=== PATIENT | female | born 1960 | race Hispanic/Latino ===

== ENCOUNTER 2018-02-18 06:28 | Day surgery (SDC) | payer BC ==
[~2018-02-18] VITALS: Ht 157.5 cm; Wt 65.8 kg
[~2018-02-18 06:28] MED LIST: AMOXICILLIN500 MG PO; BACTRIM DS1 TAB PO; CIPRO500 MG OR; CIPRODEX1 ML OT; DARVOCET-N100 MG OR; FISH OIL1000 M2 PO; FLEXERIL OR; GLIPIZIDE10 MG PO; LISINOPRIL10 MG PO; LORTAB 10-325 M1 TAB PO; MECLIZINE25 MG PO; METFORMIN1000 MG PO; PERCOCET1 TA2 PO; SIMVASTATIN40 MG OR; SIMVASTATIN40 MG PO; ULTRAM50 M1 PO
[2018-02-18] MEDS ORDERED: GABAPENTIN100 MG PO (06:46)
[2018-02-18] MEDS ORDERED: NORCO1 TA1 PO (10:59)
[2018-02-18] MEDS ORDERED: MOTRIN800 MG PO (10:59)
[2018-02-18 11:35] VITALS: BP 145/74
== END 2018-02-18 11:30 | disposition home or self-care (01) | DRG 419 ==
LOC: ENDO 06:28 → ORM 06:28 → ENDO 09:45 → ORM 11:15 → ENDO 11:15 → ORM 11:30
PROVIDERS: ATTEND Surgery
PROC: 0FT44ZZ Resection of Gallbladder, Percutaneous Endoscopic Approach (ICD-10-PCS; principal; 2018-02-18)
DX: K80.10 Calculus of gallbladder with chronic cholecystitis without obstruction (principal)
CPT/HCPCS: J2710

== ENCOUNTER 2018-08-14 10:25 | Day surgery (SDC) | payer BC ==
[~2018-08-14 10:25] MED LIST changes: +GABAPENTIN100 MG PO; +INVOKANA300 MG PO; +MOTRIN800 MG PO; +NORCO1 TA1 PO
[2018-08-14 11:58] VITALS: BP 131/76
== END 2018-08-14 12:15 | disposition home or self-care (01) | DRG 393 ==
LOC: ENDO 10:25 → ORM 14:30 → ENDO 14:30 → ORM 15:45
PROVIDERS: ATTEND Internal Medicine Gastroenterology
PROC: 0DBN8ZX Excision of Sigmoid Colon, Via Natural or Artificial Opening Endoscopic, Diagnostic (ICD-10-PCS; principal; 2018-08-14)
PROC: 0DBE8ZX Excision of Large Intestine, Via Natural or Artificial Opening Endoscopic, Diagnostic (ICD-10-PCS; 2018-08-14)
PROC: 0DB98ZX Excision of Duodenum, Via Natural or Artificial Opening Endoscopic, Diagnostic (ICD-10-PCS; 2018-08-14)
PROC: 0DB78ZX Excision of Stomach, Pylorus, Via Natural or Artificial Opening Endoscopic, Diagnostic (ICD-10-PCS; 2018-08-14)
PROC: 0DB48ZX Excision of Esophagogastric Junction, Via Natural or Artificial Opening Endoscopic, Diagnostic (ICD-10-PCS; 2018-08-14)
DX: D12.5 Benign neoplasm of sigmoid colon (principal); K64.4 Residual hemorrhoidal skin tags; K64.8 Other hemorrhoids; K29.51 Unspecified chronic gastritis with bleeding; K21.0 Gastro-esophageal reflux disease with esophagitis; B96.81 Helicobacter pylori [H. pylori] as the cause of diseases classified elsewhere; K76.0 Fatty (change of) liver, not elsewhere classified; E11.9 Type 2 diabetes mellitus without complications; I10 Essential (primary) hypertension

== ENCOUNTER 2019-09-06 | Emergency (ER) | payer SELFPAY ==
[2019-09-06] MEDS ORDERED: LORTAB 7.57.5 MG PO (21:35)
[2019-09-06] MEDS ORDERED: CARBAMAZEPIN200 M1 PO (21:36)
[2019-09-06] MEDS ORDERED: OMEPRAZOLE DR40 MG PO (21:37)
[2019-09-06] MEDS ORDERED: PEPCID20 MG PO (21:37)
[2019-09-06] MEDS ORDERED: ATORVASTATIN CA40 MG PO (21:38)
[2019-09-06 21:48] LABS: URINE BILIRUBIN - DIPSTICK NEGATIVE (NEGATIVE); URINE BLOOD DIPSTICK NEGATIVE (NEGATIVE); URINE COLOR YELLOW; URINE GLUCOSE - DIPSTICK NEGATIVE (NEGATIVE); URINE KETONE 15 mg/dL (NEGATIVE); URINE LEUK ESTERASE NEGATIVE (NEGATIVE); URINE NITRITE - DIPSTICK NEGATIVE (Negative); URINE PH 7.5 (4.5-8.0); URINE PROTEIN - DIPSTICK NEGATIVE (NEG-TRACE); URINE SPECIFIC GRAVITY 1.025; URINE UROBILINOGEN - DIPSTICK 0.2 E.U./dL (0.2)
[2019-09-06 21:48] LABS: IMMATURE GRANULOCYTES 0.4 % (0.0-5.0); MEAN CORPUSCULAR HGB 29.6 pG CALC (26.0-32.0); MEAN CORPUSCULAR HGB CONC 36.1 g/dL CAL (32.0-36.0); NEUT# 5.25 thou/uL (2.00-7.15); RED BLOOD COUNT 4.39 mill/uL (4.20-5.60); RED CELL DISTRI WIDTH 11.3 % (11.5-15.5)
[2019-09-06 22:08] LABS: ALBUMIN 4.8 g/dL (3.2-5.0); ALKALINE PHOSPHATASE 100 u/l (38-126); AMYLASE 127 u/l (30-110); BILIRUBIN, TOTAL 0.6 mg/dL (0.0-1.4); BUN 8 mg/dL (7-17); BUN/CREATININE RATIO 16 (12-20 (CALC)); CARBON DIOXIDE 26 mmol/l (22-30); CREATININE 0.5 mg/dL (0.5-1.0); GFR > 60 ML/MIN (>=60 (CALC)); GFR FOR AFR.AMER. > 60 ML/MIN (>=60 (CALC)); LIPASE 119 u/l (23-300); POTASSIUM 4.1 mmol/l (3.5-5.1); SGOT/AST 25 u/l (14-36)
[2019-09-06 22:09] LABS: ANION GAP 16 (6-22 (CALC)); CHLORIDE 83 mmol/l (95-108); SODIUM 121 mmol/l (137-146)
[2019-09-06 22:18] LABS: MYOGLOBIN 42 ng/mL (0 - 62)
[2019-09-06] MEDS ORDERED: ULTRAM50 M1 PO (22:54)
[2019-09-06] MEDS ORDERED: ONDANSETRON4 MG PO (22:54)
== END 2019-09-06 23:26 | disposition home or self-care (01) | DRG 392 ==
PROVIDERS: Emergency Medicine
DX: K29.70 Gastritis, unspecified, without bleeding (principal); I10 Essential (primary) hypertension
CPT/HCPCS: Q9967; S0164

== ENCOUNTER 2024-02-05 07:43 | Day surgery (SDC) | payer MEDICAID ==
[~2024-02-05] VITALS: Ht 157.5 cm; Wt 61.7 kg
[~2024-02-05 07:43] MED LIST changes: +ATORVASTATIN CA40 MG PO; +CARBAMAZEPIN200 M1 PO; +DICYCLOMINE HCL20 MG PO; +FAMOTIDINE20 M1 PO; +JARDIANCE25 MG PO; +LIPITOR20 M1 PO; +LORTAB 7.57.5 MG PO; +METFORMIN HCL500 M1 PO; +MOTRIN400 MG/TAB PO; +NORVASC10 M1 PO; +OMEPRAZOLE DR40 MG PO; +ONDANSETRON4 MG PO; +PEPCID20 MG PO; +ZOFRAN4 MG/TAB PO
[2024-02-05] MEDS ORDERED: FAMOTIDINE 10MG/ML 2ML SDV IV ONE (07:47)
[2024-02-05] MEDS ORDERED: SODIUM CHLORIDE 0.9% 1,000 ML IV ONE (07:48)
[2024-02-05 10:12] VITALS: BP 124/74
[2024-02-05] MEDS ORDERED: GLYCOPYRROLATE 0.2 MG/ML IV ONE (15:44)
[2024-02-05] MEDS ORDERED: PROPOFOL 200 MG/20 ML VIAL IV ONE (15:44)
[2024-02-05] MEDS ORDERED: LIDOCAINE HCL 2% 2ML SDV IV ONE (15:44)
== END 2024-02-05 10:08 | disposition home or self-care (01) ==
LOC: ENDO 07:43 → ORM 10:45
PROVIDERS: ATTEND Surgery
DX: Z12.11 Encounter for screening for malignant neoplasm of colon (principal); K64.8 Other hemorrhoids; I10 Essential (primary) hypertension; E11.9 Type 2 diabetes mellitus without complications; Z79.84 Long term (current) use of oral hypoglycemic drugs; Z86.010 Personal history of colon polyps